=== PATIENT | male | born 1990 | race Caucasian/White ===

== ENCOUNTER → 2016-08-02 08:27 | Outpatient (CLI) | payer MEDICAID ==
[~2016-08-02 08:27] MED LIST: HYDROCODONE-APA1 TAB PO
[2016-08-28 11:58] VITALS: BMI 39.1
== END ==
LOC: D.MRI 08:27
DX: M25.512 Pain in left shoulder (principal)

== ENCOUNTER 2016-08-28 10:27 | Day surgery (SDC) | payer MEDICAID ==
[~2016-08-28] VITALS: Ht 182.9 cm; Wt 130.6 kg
[2016-08-28 11:58] VITALS: Ht 182.9 cm; Wt 130.6 kg
[2016-08-28] MEDS ORDERED: HYDROCODONE-APA1 TAB PO (14:14)
--- NOTE | 2016-08-28 17:58 | NUR ---
1730 UP TO BATHROOM VOIDED URINE WITHOUT DIFFICULTY. IV DC'ED WITH CATH INTACT & 300ML LTC BY Aleida ABBASI R.N. PT DRESSING WITH ASSISTANCE OF . Aleida QUINTERO R.N. 1800 DRESSED. AWAKE & ALERT. GIVEN DISCHARGE INFORMATION INCLUDING RX: NORCO 10/325MG, MED REC.,PERIPHERAL NERVE BLOCK INFORMATION SHEET, PENDULUM EXERCISE SHEET, POST OP INSTRUCTIONS FOR ARTHROSCOPY OF THE SHOULDER SHEET, RTC APPT., & D/C INSTRUCTIONS BY Aleida ABBASI R.N. PT & VOICE UNDERSTANDING. TO PRIVATE CAR PER WHEELCHAIR BY Aleida ABBASI. HOME WITH Bozena RIVERO. Aleida QUINTERO R.N.
--- NOTE | 2016-08-29 16:52 | OP ---
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 PROCEDURES: 1. Arthroscopic subacromial decompression, acromioplasty and bursectomy. 2. Arthroscopic distal clavicle excision done through separate incision -- 1 cm. SURGEON: Charly Carballo MD. ANESTHESIA: General. INTRAOPERATIVE COMPLICATIONS: None. SUMMARY OF PATHOLOGIC FINDINGS: The patient had excoriation of the coracoacromial ligament consistent with the preoperative diagnosis of impingement with some minor rotator cuff tearing, AC arthropathy obviously was substantial. OPERATIVE SUMMARY IN DETAIL: After obtaining the appropriate preoperative orthopedic surgery consent as well as anesthetic consultation, evaluation and clearance, the patient was brought to the operating room and placed on the operating table in supine position. After general laryngeal mask was administered, the patient was placed in a right lateral decubitus position. All pressure points were well padded to include down leg peroneal pad as well as axillary roll. The patient was held firmly to the operating table using the vacuum pack suction system. Left upper extremity and shoulder were then prepped and draped in routine sterile fashion. The arm was held in the Arthrex traction boom at 30 degrees of forward flexion, 30 degrees of abduction with 10 pounds of traction laterally. Arthroscopy was established in the glenohumeral joint from a posterior portal. Anterior portal was established in the anterior safe interval. Diagnostic arthroscopy did reveal the above findings. Attention was turned to the subacromial space. Stonewall tissue ablation system was used to denude the undersurface of the acromion of all soft tissue elements. A 5-0 barrel delio was used to perform acromioplasty at the level of the acromioclavicular joint. Under direct arthroscopy, the distal clavicle was excised for 1 cm and the inferior osteophytes were taken down. A resector was then used to debride the residual subacromial bursitis. Having completed this, arthroscopy portals were closed in routine interrupted fashion using 4-0 Prolene. Sterile dressings were applied. The patient was awakened, taken to the recovery room in stable condition. All final needle and sponge counts were correct. TRANSINT:[id number] Voice Confirmation ID: [id number] DOCUMENT ID: [id number] OPERATIVE REPORT [id number] EDUARD RIVERO MD, CHARLY STOREY at 1652 CC: [id number] DICTATION DATE: 08/28/161415 [employer]TE[employer] SOFTWARE DEVELOPER: 08/28/162121 [facility] 08/28/[address] [id number]
== END 2016-08-28 18:05 | disposition home or self-care (01) ==
LOC: D.OPS 10:27 → D.PAN 12:00 → D.OPS 12:00 → D.PAN 13:15 → D.OPS 18:05
DX: M75.42 Impingement syndrome of left shoulder (principal); M13.812 Other specified arthritis, left shoulder